=== PATIENT | female | born 1935 | race Hispanic/Latino ===

== ENCOUNTER 2017-08-03 11:32 | Emergency (ER) | payer MEDICARE ==
[2017-08-03 11:33] VITALS: BMI 30.2
[2017-08-03 11:48] VITALS: RESP 18; TEMP 98
--- NOTE | 2017-08-03 11:56 | ED PDOC ---
Arrival/HPI - General Chief Complaint: Trauma Time Seen by Provider: 08/03/17 11:44 Historian: Patient - History of Present Illness Narrative History of Present Illness (Text): 08/03/17 11:52 81 y/o female, not on any blood thinner or anticoagulant, pmh including pace maker, nkda, c/o bilateral hand and rt. knee injury s/p tripped and fall about 1 hour ago. Pt. stated that she was walking, tripped over a uneven pavement and fall on the rt. knee then on the both hand palmar, lightly scrape on the chin, no head or neck/back injury, able to recall the whole event, no LOC, no nausea or vomiting, stated that this is mechanical fall by the patient and son as she didn't feel any weakness or chest pain/palpitation prior to the incident , no other medical or psychological complaints. Past Medical History - Provider Review Nursing Documentation Reviewed: Yes - Tetanus Immunization Tetanus Immunization: Unknown - Cardiac Hx Hypertension: Yes - Musculoskeletal/Rheumatological Hx Arthritis: Yes (RA) - Psychiatric Hx Depression: No Hx Emotional Abuse: No Hx Physical Abuse: No Hx Substance Use: No - Anesthesia Hx Anesthesia: No Hx Anesthesia Reactions: No Hx Malignant Hyperthermia: No - Suicidal Assessment Feels Threatened In Home Enviroment: No Family/Social History - Physician Review Nursing Documentation Reviewed: Yes Family/Social History: Unknown Family HX Smoking Status: Never Smoked Hx Alcohol Use: No Hx Substance Use: No Allergies/Home Meds Allergies/Adverse Reactions: Allergies No Known Allergies Allergy (Verified 04/20/13 11:50) Home Medications: Home Meds Medication Instructions Recorded Confirmed Alendronate [Fosamax] 70 mg PO QWK 08/03/17 08/03/17 Review of Systems - Review of Systems Constitutional: absent: Fatigue, Fevers Eyes: absent: Vision Changes ENT: absent: Hearing Changes Respiratory: absent: SOB, Cough Cardiovascular: absent: Chest Pain Gastrointestinal: absent: Abdominal Pain, Diarrhea, Nausea, Vomiting Musculoskeletal: Arthralgias, Myalgias. absent: Back Pain, Neck Pain, Joint Swelling Skin: absent: Rash, Pruritis, Skin Lesions, Laceration, Abscess Neurological: absent: Headache, Dizziness, Focal Weakness, Gait Changes Physical Exam Vital Signs Reviewed: Yes Vital Signs Temp Pulse Resp BP Pulse Ox 08/03/17 12:45 68 18 168/61 H 98 08/03/17 11:33 98 F 72 18 174/58 H 100 Temperature: Afebrile Blood Pressure: Hypertensive Pulse: Regular Respiratory Rate: Normal Appearance: Positive for: Well-Appearing, Non-Toxic, Comfortable Pain Distress: Mild Mental Status: Positive for: Alert and Oriented X 3 - Systems Exam Head: Present: Atraumatic, Normocephalic, Other (Facial: mild skin erythematous from the superficial rubbing on the chin but no skin breaking, no abrasion or laceration, no bony tenderness). No: Tenderness, Contusion, Swelling, Ecchymosis, Abrasion, Laceration Pupils: Present: PERRL Extroacular Muscles: Present: EOMI Conjunctiva: Present: Normal Ears: Present: NORMAL TM, Normal Canal. No: Erythema Mouth: Present: Moist Mucous Membranes Nose (External): Present: Atraumatic. No: Abrasion, Contusion, Laceration, Lesions Nose (Internal): Present: Normal Inspection, No Active Bleeding. No: Rhinorrhea , Septal Hematoma, Epistaxis Neck: Present: Normal Range of Motion Respiratory/Chest: Present: Clear to Auscultation, Good Air Exchange. No: Respiratory Distress, Accessory Muscle Use, Wheezes, Decreased Breath Sounds, Rales, Retracting, Rhonchi, Tachypneic, Tender to Palpation, Other Cardiovascular: Present: Regular Rate and Rhythm, Normal S1, S2. No: Murmurs Abdomen: Present: Normal Bowel Sounds. No: Tenderness, Distention, Peritoneal Signs, Rebound, Guarding Back: Present: Normal Inspection. No: Midline Tenderness, Paraspinal Tenderness Upper Extremity: Present: Normal Inspection, Other (Bilateral upper extremities : +ttp on the on the bilateral hand palmar regions with no scaphoid or wrist tenderness, no abrasion or laceration, no bony tenderness, FROM without limitation, sensation intact, motor 5/5, +radial pulse, capillary refill< 2 seconds, neurovascular intact. ). No: Cyanosis, Edema Lower Extremity: Present: Normal Inspection, Other (Rt. knee: mild tenderness on the rt. anterior knee with no abrasion or lacaeration, no bony deformity, negative antoine and lawrence signs, FROM without limitation, sensation intact, motor 5/5, +DPPT pulses, capillary refill< 2 seconds, neurovascular intact. ). No: Edema Neurological: Present: GCS=15, Speech Normal, Motor Func Grossly Intact, Gait Normal, Memory Normal Skin: Present: Warm, Dry, Normal Color. No: Rashes Psychiatric: Present: Alert, Oriented x 3, Normal Insight, Normal Concentration Medical Decision Making ED Course and Treatment: 08/03/17 12:05 -tylenol -xrays -observe and reassess 08/03/17 13:16 -xrays of the both hands and rt. knee show no fracture or dislocation, no abrasion or laceration from the fall. -Case discussed with Dr. Norris, he agreed on diagnosis/treatment and discharge plan. -Discharge home with oswald wrap, tylenol, ice compression, follow up with your own pmd and orthopedic within 2 days, return to the ER for any new or worsening signs or symptoms. - RAD Interpretation Radiology Orders: 08/03/17 11:56 HAND 3 VIEWS BI [RAD] Stat KNEE RIGHT 2 VIEWS (AP & LAT) [RAD] Stat Rt. Knee: PROCEDURE: Right Knee Radiographs. HISTORY: rt. knee injury and fall COMPARISON: None. FINDINGS: BONES: Normal. No fracture. JOINTS: Normal. No osteoarthritis. JOINT EFFUSION: None. OTHER FINDINGS: None. IMPRESSION: Normal radiographs of the right knee. Bilateral hand xrays: PROCEDURE: Bilateral hand radiographs. HISTORY: fall on the palm COMPARISON: None. FINDINGS: BONES: Right Hand: Normal. No osteoarthritic changes. Left Hand: Normal. No osteoarthritic changes. JOINTS: Right Hand: Normal. Left Hand: Normal. SOFT TISSUES: Right Hand: Normal. Left Hand: Normal. OTHER FINDINGS: None. IMPRESSION: Normal radiographs of the hands. Linen Folder: Radiologist - Medication Orders Current Medication Orders: Discontinued Medications Acetaminophen (Tylenol 325mg Tab) 650 mg PO STAT STA Stop: 08/03/17 11:57 Last Admin: 08/03/17 12:46 Dose: 650 mg MAR Pain/Vitals Document 08/03/17 12:46 AB (Rec: 08/03/17 12:47 AB [id number]) Pain Reassessment Is This A Pain ReAssessment? Yes Sleep Is patient sleeping during reassessment? No Presence of Pain Presence of Pain Yes Pain Scale Used Pain Scale Used Numeric Location Left, Right or Bilateral Right Pain Location Body Site Arm Description Intermittent Intensity 4 Pain Behavior Guarding Aggravating Factors Changing Position Alleviating Factors Medication - PA / POCKET ASSEMBLER / Resident Statement MD/DO has reviewed & agrees with the documentation as recorded. Disposition/Present on Arrival - Present on Arrival Any Indicators Present on Arrival: No History of DVT/PE: No History of Uncontrolled Diabetes: No Urinary Catheter: No History of Decub. Ulcer: No History Surgical Site Infection Following: None - Disposition Have Diagnosis and Disposition been Completed?: Yes Diagnosis: Contusion, Accidental fall, Arthralgia Disposition: HOME/ ROUTINE Disposition Time: 13:16 Patient Plan: Discharge Patient Problems: Current Active Problems Problem Status Onset Accidental fall Acute Arthralgia Acute Contusion Acute Condition: IMPROVED Additional Instructions: -Discharge home with oswald wrap, tylenol, ice compression, follow up with your own pmd and orthopedic within 2 days, return to the ER for any new or worsening signs or symptoms. Prescriptions: Acetaminophen [Tylenol 325mg tab] 2 tab PO QID PRN #30 tab PRN Reason: Other Referrals: Leonel Bagley MD [Primary Care Provider] - Follow up with primary Prasanna Moran MD [Staff Provider] - Follow up with primary Hernesto Potter MD [Staff Provider] - Follow up with primary Forms: WORK NOTE
[2017-08-03 12:45] VITALS: O2SAT 98
--- NOTE | 2017-08-03 13:16 | RAD ---
PROCEDURE: Right Knee Radiographs. HISTORY: rt. knee injury and fall COMPARISON: None. FINDINGS: BONES: Normal. No fracture. JOINTS: Normal. No osteoarthritis. JOINT EFFUSION: None. OTHER FINDINGS: None. IMPRESSION: Normal radiographs of the right knee.
--- NOTE | 2017-08-03 13:16 | RAD ---
PROCEDURE: Bilateral hand radiographs. HISTORY: fall on the palm COMPARISON: None. FINDINGS: BONES: Right Hand: Normal. No osteoarthritic changes. Left Hand: Normal. No osteoarthritic changes. JOINTS: Right Hand: Normal. Left Hand: Normal. SOFT TISSUES: Right Hand: Normal. Left Hand: Normal. OTHER FINDINGS: None. IMPRESSION: Normal radiographs of the hands.
[2017-08-03 13:27] VITALS: BP 158/65; PULSE 65
== END 2017-08-03 13:47 | disposition home or self-care (01) ==
LOC: ED 11:32
DX: S60.222A Contusion of left hand, initial encounter (principal); S60.221A Contusion of right hand, initial encounter; S80.01XA Contusion of right knee, initial encounter; W01.0XXA Fall on same level from slipping, tripping and stumbling without subsequent striking against object, initial encounter; Y93.89 Activity, other specified; Y92.480 Sidewalk as the place of occurrence of the external cause

== ENCOUNTER 2019-01-12 14:29 | Outpatient (CLI) | payer MEDICARE | END 2019-01-12 14:30 | disposition home or self-care (01) | LOC: RAD 14:29 ==

== ENCOUNTER 2019-01-18 08:17 | Outpatient (CLI) | payer MEDICARE | END 2019-01-18 08:18 | disposition home or self-care (01) | LOC: RAD 08:17 ==